=== PATIENT | male | born 1990 | race African-American/Black ===

== ENCOUNTER 2020-01-09 17:55 | Emergency (ER) | payer MEDICARE, MEDICAID ==
[~2020-01-09] VITALS: Ht 182.9 cm; Wt 81.6 kg
[2020-01-09] MEDS ORDERED: Metoclopramide 10mg/2ml Inj IVP ONE (18:30)
[2020-01-09] MEDS ORDERED: Ketorolac 30mg Inj IV ONE (18:30)
[2020-01-09 19:04] VITALS: BP 144/78
--- NOTE | 2020-01-09 19:06 | NUR ---
ED Nurse Note: Patient was brought in by [facility] [id number] due to headache with N/V for a couple of hours. Patient presented weak, AAO x4, VSS at this time, statred has Hx of seizures, CVA.
--- NOTE | 2020-01-09 19:13 | NUR ---
ED Nurse Note: Report received from SAMARA MCGHEE Xray done at bedside
--- NOTE | 2020-01-09 19:42 | Diagnostic Imaging Report ---
EXAM: CT Head Without Intravenous Contrast CLINICAL HISTORY: DIZZY TECHNIQUE: Axial computed tomography images of the head/brain without intravenous contrast. CTDI is 53.4 mGy and DLP is 965.5 mGy-cm. One or more of the following dose reduction techniques were used: automated exposure control, adjustment of the mA and/or kV according to patient size, use of iterative reconstruction technique. COMPARISON: No relevant prior studies available. FINDINGS: Brain: Superior portion of left cerebellum hypodensity could represent subacute or chronic infarct versus possibly vasogenic edema. Right hemispheric subdural distribution 0.2-0.3 cm thick structure with multifocal calcifications in without mass effect could be due to prior meningeal inflammation, subdural collection, or other process and is not well-defined on current study. No hemorrhage. No significant white matter disease. Ventricles: Unremarkable. No ventriculomegaly. Bones/joints: No acute cranial mass, mass effect, or hemorrhage. Soft tissues: Unremarkable. Sinuses: Unremarkable as visualized. No acute sinusitis. Mastoid air cells: Unremarkable as visualized. No mastoid effusion. IMPRESSION: 1. No acute cranial mass, mass effect, or hemorrhage. 2. Superior portion of left cerebellum hypodensity could represent subacute or chronic infarct versus possibly vasogenic edema. 3. Recommend MRI brain without and with IV contrast if etiology for this finding is not already known. 4. Right hemispheric subdural to sedation thickening as above without mass effect, probably represents a chronic, remote insult; correlate with history. This can also be further evaluated on MRI. <MYCVCSECTION> Communications: 01/09/20 19:43 Call Doctor Regarding Stroke, called ANTIONETTE Stoner on 01/08 19: 43 (-08:00)
[2020-01-09] MEDS ORDERED: cefTRIAXone 1 GM in NS 55 ML IVPB ONE (19:45)
--- NOTE | 2020-01-09 19:46 | Emergency Room Report ---
History of Present Illness General Chief Complaint: Headache Source: EMS Present Illness HPI 29-year-old male with history of brain tumor x5 years currently in remission and to CVA status post brain tumor resection as well as seizure history currently not taking any medication now following up with oncologist brought in by paramedics due to sudden onset of headache this morning that woke him up. Rates the pain 10 out of 10 without radiation. Denies any photophobia however complains of nausea and vomiting. Denies any bloody emesis. Also complains of sudden onset of cough with phlegm production. Complains of chest pain shortness of breath. Denies diarrhea, loss of taste and smell. Patient has not been seen by any doctors for many years. Reports that he is also HIV positive and takes his HIV medication. Denies tobacco smoke, drug use, alcohol intake Allergies: Coded Allergies: No Known Allergies (Unverified , 01/09/20) COVID-19 Screening Contact w/high risk pt: No Experienced COVID-19 symptoms?: Yes COVID-19 Testing performed [employer]: No Patient History Past Medical History: see triage record Past Surgical History: none Pertinent Family History: none Immunizations: UTD Reviewed Nursing Documentation: PMH: Agreed; PSxH: Agreed Nursing Documentation-PMH Past Medical History: No Stated History Review of Systems All Other Systems: negative except mentioned in HPI Physical Exam Vital Signs Date Time Temp Pulse Resp B/P (MAP) Pulse Ox O2 Delivery O2 Flow Rate FiO2 01/09/20 17:51 97.5 80 18 144/78 (100) 98 Room Air Sp02 EP Interpretation: reviewed, normal General Appearance: alert, GCS 15, non-toxic, mild distress Head: normocephalic, atraumatic Eyes: bilateral eye normal inspection, bilateral eye PERRL ENT: hearing grossly normal, normal pharynx, no angioedema, normal voice Neck: full range of motion, supple/symm/no masses Respiratory: chest non-tender, lungs clear, normal breath sounds, no rhonchi, no respiratory distress, no retraction, speaking full sentences Cardiovascular #1: regular rate, rhythm, no edema Cardiovascular #2: 2+ carotid (R), 2+ carotid (L), 2+ radial (R), 2+ radial (L), 2+ dorsalis pedis (R), 2+ dorsalis pedis (L) Gastrointestinal: normal bowel sounds, non tender, soft, non-distended, no guarding, no rebound Genitourinary: no CVA tenderness Musculoskeletal: back normal, no calf tenderness, pelvis stable, gait/station normal Neurologic: alert, motor strength/tone normal, oriented x3, sensory intact, responsive, speech normal Psychiatric: judgement/insight normal, memory normal, mood/affect normal, no suicidal/homicidal ideation Skin: no rash Lymphatic: no adenopathy Medical Decision Making PA Attestation All my diagnosis and treatment plans were reviewed ad discussed with my supervising physician Dr. Castle Diagnostic Impression: Primary Impression: Headache Additional Impression: URI (upper respiratory infection) ER Course 29-year-old male with history of brain tumor x5 years currently in remission and to CVA status post brain tumor resection as well as seizure history currently not taking any medication now following up with oncologist brought in by paramedics due to sudden onset of headache this morning that woke him up. Rates the pain 10 out of 10 without radiation. Denies any photophobia however complains of nausea and vomiting. Denies any bloody emesis. Also complains of sudden onset of cough with phlegm production. Complains of chest pain shortness of breath. Denies diarrhea, loss of taste and smell. Patient has not been seen by any doctors for many years. Reports that he is also HIV positive and takes his HIV medication. Denies tobacco smoke, drug use, alcohol intake Ddx considered but are not limited to: CVA, TIA, pulmonary embolism leading to stroke, coronavirus, bronchitis, URI Vital signs: are WNL, pt. is afebrile H&PE are most consistent with: URI, headache ORDERS: Head CT no contrast, CBC, CMP, UA, tox screen, troponin, chest x-ray, EKG, azithromycin, Reglan, Excedrin ER intervention: Toradol, Reglan, Rocephin, NS bolus At this time patient is stable to be discharged, advised patient to follow-up with primary care provider for referral to neurologist for history of recurrences of CVA and chronic changes to brain. Continues to follow with oncologist though patient has been in remission for many years. If worsening symptoms return to the emergency room EKG Diagnostic Results Rate: normal Rhythm: NSR ST Segments: no acute changes Other Impression No acute ST changes ASA given to the pt in ED: No Chest X-Ray Diagnostic Results Chest X-Ray Diagnostic Results : Chest X-Ray Ordered: Yes # of Views/Limited/Complete: 1 View Indication: Chest Pain EP Interpretation: Yes PA Xray: Interpretation reviewed, by supervising MD, and agrees with findings. Interpretation: no consolidation, no effusion, no pneumothorax Impression: No acute disease Electronically Signed by: Trenton Kebede PA-C CT/MRI/US Diagnostic Results CT/MRI/US Diagnostic Results #1: Imaging Test Ordered: CT head no contrast Impression FINDINGS: Brain: Superior portion of left cerebellum hypodensity could represent subacute or chronic infarct versus possibly vasogenic edema. Right hemispheric subdural distribution 0.2-0.3 cm thick structure with multifocal calcifications in without mass effect could be due to prior meningeal inflammation, subdural collection, or other process and is not well-defined on current study. No hemorrhage. No significant white matter disease. Ventricles: Unremarkable. No ventriculomegaly. Bones/joints: No acute cranial mass, mass effect, or hemorrhage. Soft tissues: Unremarkable. Sinuses: Unremarkable as visualized. No acute sinusitis. Mastoid air cells: Unremarkable as visualized. No mastoid effusion. IMPRESSION: 1. No acute cranial mass, mass effect, or hemorrhage. 2. Superior portion of left cerebellum hypodensity could represent subacute or chronic infarct versus possibly vasogenic edema. 3. Recommend MRI brain without and with IV contrast if etiology for this finding is not already known. 4. Right hemispheric subdural to sedation thickening as above without mass ef fect, probably represents a chronic, remote insult; correlate with history. This can also be further evaluated on MRI. Radiologist: Marcelino Johnston MD Electronically Signed: 01/09/20 19:42 CT/MRI/US Diagnostic Results #2: Imaging Test Ordered: MRI head Impression FINDINGS: Brain: Patient reportedly has a history of intracranial neoplasm with prior chemotherapy administrations, no operative intracranial findings are seen. Left small cerebellar superior portion encephalomalacia from prior infarct. Parenchymal volume loss. Nonspecific white matter T2/FLAIR hyperintensity likely secondary to treatment effect.. Mild right hemispheric subdural space thickening similar to that seen on comparison CT probably represents an old process with subdural space. Correlate with patient history. No hemorrhage. Ventricles: Unremarkable. No ventriculomegaly. Bones/joints: Unremarkable. Sinuses: Unremarkable as visualized. No acute sinusitis. Mastoid air cells: Unremarkable as visualized. No mastoid effusion. Orbits: Unremarkable as visualized. IMPRESSION: 1. Patient reportedly has a history of intracranial neoplasm with prior chemotherapy administrations, no operative intracranial findings are seen. 2. No acute intracranial abnormality. 3. Left small cerebellar superior portion encephalomalacia from prior infarct. 4. Mild right hemispheric subdural space thickening similar to that seen on comparison CT probably represents an old process with subdural space. Correlate with patient history. 5. Parenchymal findings above likely due to treatment effect. Last Vital Signs Date Time Temp Pulse Resp B/P (MAP) Pulse Ox O2 Delivery O2 Flow Rate FiO2 01/09/20 19:04 97.5 18 144/78 98 Room Air 01/09/20 17:51 80 Disposition: HOME, SELF-CARE Condition: Stable Patient Instructions: General Headache Without Cause, Upper Respiratory Infection, Adult, [id number] Additional Instructions: At this time patient is stable to be discharged, advised patient to follow-up with primary care provider for referral to neurologist for history of recurrences of CVA and chronic changes to brain. Continues to follow with oncologist though patient has been in remission for many years. If worsening symptoms return to the emergency room Trenton Perdomo Jan 09, 2020 19:46
--- NOTE | 2020-01-09 20:00 | NUR ---
ED Nurse Note: Blood and urine sent to lab
--- NOTE | 2020-01-09 20:20 | NUR ---
ED Nurse Note: MRI done
[2020-01-09 20:44] LABS: BASOPHILS % (AUTO) 1.5 % (0.0-2.0); EOSINOPHILS % (AUTO) 1.9 % (0.0-3.0); HEMATOCRIT 39.3 % (42.0-52.0); HEMOGLOBIN 13.4 G/DL (14.2-18.0); LYMPHOCYTES % (AUTO) 24.8 % (20.0-45.0); MEAN CORPUSCULAR VOLUME 99 FL (80-99); MONOCYTES % (AUTO) 7.3 % (1.0-10.0); NEUTROPHILS % (AUTO) 64.5 % (45.0-75.0); PLATELET COUNT 298 K/UL (150-450); RED BLOOD COUNT 3.98 M/UL (4.70-6.10); WHITE BLOOD COUNT 8.4 K/UL (4.8-10.8)
[2020-01-09 20:47] LABS: APPEARANCE,URINE CLEAR; BILIRUBIN, URINE NEGATIVE (NEGATIVE); GLUCOSE, URINE (UA) NEGATIVE (NEGATIVE); KETONES,URINE NEGATIVE (NEGATIVE); NITRITE,URINE NEGATIVE (NEGATIVE); PH,URINE 6.5 (4.5-8.0); PROTEIN,URINE NEGATIVE (NEGATIVE); UROBILINOGEN,URINE 1 MG/DL (0.0-1.0)
[2020-01-09 20:52] LABS: ANION GAP 5 mmol/L (5-15); BLOOD UREA NITROGEN 6 mg/dL (7-18); CARBON DIOXIDE 30 MMOL/L (21-32); CHLORIDE 99 MMOL/L (98-107); CREATININE 1.1 MG/DL (0.55-1.30); POTASSIUM 3.7 MMOL/L (3.5-5.1); SODIUM 134 MMOL/L (136-145)
[2020-01-09 20:56] LABS: ALANINE AMINOTRANSFERASE 23 U/L (12-78); ALBUMIN 3.2 G/DL (3.4-5.0); ALBUMIN/GLOBULIN RATIO 0.7 (1.0-2.7); ALKALINE PHOSPHATASE 84 U/L (46-116); ASPARTATE AMINO TRANSFERASE 24 U/L (15-37); BILIRUBIN,TOTAL 0.3 MG/DL (0.2-1.0)
--- NOTE | 2020-01-09 21:08 | Diagnostic Imaging Report ---
EXAM: MR Head Without Intravenous Contrast CLINICAL HISTORY: CVA TECHNIQUE: Magnetic resonance images of the head/brain without intravenous contrast in multiple planes. COMPARISON: same day CT head FINDINGS: Brain: Patient reportedly has a history of intracranial neoplasm with prior chemotherapy administrations, no operative intracranial findings are seen. Left small cerebellar superior portion encephalomalacia from prior infarct. Parenchymal volume loss. Nonspecific white matter T2/FLAIR hyperintensity likely secondary to treatment effect.. Mild right hemispheric subdural space thickening similar to that seen on comparison CT probably represents an old process with subdural space. Correlate with patient history. No hemorrhage. Ventricles: Unremarkable. No ventriculomegaly. Bones/joints: Unremarkable. Sinuses: Unremarkable as visualized. No acute sinusitis. Mastoid air cells: Unremarkable as visualized. No mastoid effusion. Orbits: Unremarkable as visualized. IMPRESSION: 1. Patient reportedly has a history of intracranial neoplasm with prior chemotherapy administrations, no operative intracranial findings are seen. 2. No acute intracranial abnormality. 3. Left small cerebellar superior portion encephalomalacia from prior infarct. 4. Mild right hemispheric subdural space thickening similar to that seen on comparison CT probably represents an old process with subdural space. Correlate with patient history. 5. Parenchymal findings above likely due to treatment effect.
[2020-01-09 21:19] LABS: COLOR,URINE YELLOW
[2020-01-09 21:20] LABS: LEUKOCYTE ESTERASE ,URINE TRACE (NEGATIVE)
[2020-01-09] MEDS ORDERED: EXCEDRIN EXTRA1 EAC1 PO (21:42)
[2020-01-09] MEDS ORDERED: REGLAN10 MG ORAL (21:42)
[2020-01-09] MEDS ORDERED: ZITHROMAX250 MG ORAL (21:42)
[2020-01-09] MEDS ORDERED: PROMETHAZI6.25 MG/1 ORAL (21:45)
[2020-01-09] MEDS ORDERED: PREDNISONE20 MG ORAL (21:45)
--- NOTE | 2020-01-09 22:03 | NUR ---
ER DISCHARGE NOTE: Patient is cleared to be discharged per ERMD, pt is aox4, on room air, with stable vital signs. pt was given dc and prescription instructions, pt was able to verbalize understanding, pt id band and iv site removed without complications. pt is able to ambulate with steady gait. pt took all belongings.
[2020-01-09 22:15] VITALS: BP 138/79
--- NOTE | 2020-01-10 15:19 | Diagnostic Imaging Report ---
Indication: Cough Technique: One view of the chest Comparison: none Findings: Lungs and pleural spaces are clear. Heart size is normal. Impression: No acute process
== END 2020-01-09 22:15 | disposition home or self-care (01) ==
LOC: EDBD 17:55 → EMR 20:54
DX: R51.9 Headache, unspecified (principal); J06.9 Acute upper respiratory infection, unspecified; G93.89 Other specified disorders of brain; Z85.841 Personal history of malignant neoplasm of brain; Z86.73 Personal history of transient ischemic attack (TIA), and cerebral infarction without residual deficits
CPT/HCPCS: 36415; 70450; 70551; 71045; 80053; 80307; 81003; 83605; 84484; 85025; 93005; 96361; 96365; 96375; 99284; G0480; J0696; J1885; J2765; J7030